=== PATIENT | male | born 1935 | race Caucasian/White ===

== ENCOUNTER 2024-10-30 09:53 | Day surgery (SDC) | payer OTHER, SELFPAY ==
[2024-10-30] VITALS (14 sets, daily range): BP systolic 90–172; BP diastolic 43–133
[2024-10-30 10:44] LABS: Glucose - Point of Care 127 mg/dl (70-99)
--- NOTE | 2024-10-30 11:26 | CONSULT.STRU ---
Consultation
-
Date/Time Consultation Requested: 10/30/2024
Date/Time Consultation Performed: 10/30/2024
Requesting Provider: Gloria Lopez MD
Performing Provider: ABDIRAHMAN Stafford
Reason for Consultation: /TAVR
Patient History
Physicians
Family Physician: Roxanne Simeon MD
Outpatient Shim Plug Cutter: Tate Nair MD
Primary Shim Plug Cutter: Tate Nair MD
History of Present Illness
Mr. Kurtz is a very pleasant 89 yom that has a past medical history significant for aortic stenosis, AFIB, PPM, AVR, HLD, HTN, mitral stenosis, and T2DM. His echocardiogam from 08/16/2024 is notable for an EF 50%, AV P/M 59/39, TORRIE 0.44, DI
0.23, MS, MAC. From a symptomatology standpoint, patient describes recent hospitalization for HFpEF, LE edema, HARRIS, and fatigue. Discussed the pathophysiology and treatment options of aortic stenosis including SAVR and TAVR, Explained the evaluation
process comprising of lab work, CT scan, CT surgical consult, dental clearance, and a heart team discussion. TAVR booklet, contact information, prescriptions, and appointments given to patient. Allowed for and answered questions at bedside.
Past Medical History
Past Medical History: Atrial Fib, CHF (HFpef), HTN, NIDDM, Valvular Disease (bioprosthetic aortic stenosis, MS) and Other (hyperlipidemia, CKD)
Past Surgical History
Past Surgical History: Valve (Aortic Valve (#25 bioprosthetic)) and Other (PPM)
Dental History
[facility] dentistry--Patient states he is UTD-- Will send dental clearance form
Family History
Mother: N/A
Father: N/A
Social History
Alcohol: Occasional
Drug: None
Tobacco: Former Smoker
Personal: Single
Living: With Family
Employment: Retired
Allergies
Allergy/AdvReac Type Severity Reaction Status Date / Time
No Known Allergies Allergy Verified 10/30/24 10:48
Home Medications
�Medication �Instructions �Recorded �Confirmed �Type
triamterene 37.5 1 cap PO DAILY 02/05/08 10/30/24 History
mg-hydrochlorothiazide 25 mg
capsule
vitamins A and D3 in cod liver oil 1 cap PO DAILY 02/05/08 10/30/24 History
1,250 unit-135 unit capsule
apixaban 5 mg tablet (Eliquis) 5 mg PO BID 10/30/24 10/30/24 History
atorvastatin 20 mg tablet 20 mg PO DAILY 10/30/24 10/30/24 History
carvedilol 6.25 mg tablet 6.25 mg PO BID 10/30/24 10/30/24 History
empagliflozin 25 mg tablet 12.5 mg PO DAILY 10/30/24 10/30/24 History
(Jardiance)
ferrous sulfate 324 mg (65 mg 324 mg PO BID 10/30/24 10/30/24 History
iron) tablet,delayed release
glimepiride 4 mg tablet 4 mg PO DAILY 10/30/24 10/30/24 History
metformin 1,000 mg tablet 1,000 mg PO BID 10/30/24 10/30/24 History
spironolactone 25 mg tablet 25 mg PO DAILY 10/30/24 10/30/24 History
terazosin 5 mg capsule 5 mg PO HS 10/30/24 10/30/24 History
torsemide 20 mg tablet 20 mg PO DAILY 10/30/24 10/30/24 History
valsartan 40 mg tablet 40 mg PO BID 10/30/24 10/30/24 History
STS%
STS %: 9.28
Review of Systems
-
History Source: Patient and Family
General: Reports Fatigue
HEENT: Reports No Symptoms
Respiratory: Reports SOB and HARRIS
Cardiac: Reports No Symptoms
Abdomen/GI: Reports No Symptoms
: Reports No Symptoms
Musculoskeletal: Reports No Symptoms
Skin: Reports No Symptoms
Neurological: Reports No Symptoms
Vascular: Reports No Symptoms
Physical Exam
Vital Signs
Pulse 67 10/30/24 10:26
Resp Rate 19 10/30/24 10:26
Blood pressure 96/68 10/30/24 10:26
Blood pressure extremity used: Left upper arm 10/30/24 10:26
Position: Sitting 10/30/24 10:26
SaO2 98 10/30/24 10:26
Oxygen Mode of Delivery Room air 10/30/24 10:26
Can the patient verbally communicate their pain? Yes 10/30/24 10:26
Diagnostic Studies
ECHOCARDIOGRAM 08/16/2024
SUMMARY
1. Preserved left ventricular systolic function.
2. Estimated left ventricular ejection fraction is 50 % by visual interpretation.
3. Entire septum is abnormal.
4. Indeterminate LV diastolic function.
5. Normal right ventricular size and systolic function.
6. Severely dilated left atrium by volume index 51.9 mL/m2.
7. Mildly dilated right atrium by area 21.6 cm2.
8. Status post aortic valve replacement. Aortic prosthesis appears to be functioning abnormally. The prosthetic aortic valve appears obstructed. Aortic valve gradients are elevated for this prosthesis type.
9. AoV velocity of 3.85 m/s; Peak aortic valve gradient = 59.2 mmHg; Mean gradient = 38.5 mmHg; AoV Area by continuity equation = 0.44 cm2; AoV Dimensionless Index = 0.23.
10. Moderate mitral valve stenosis with mean gradient of 7.4 mmHg.
11. Moderate mitral annular calcification.
12. Moderate tricuspid regurgitation.
13. Moderate mitral valve regurgitation is seen.
14. Inferior vena cava normal in size (>2.1 cm) + less than 50% variably consistent with elevated right atrial pressures (15 mmHg).
15. Right atrial pressure of (15 mmHg), the estimated right ventricular systolic pressure is severely elevated at (78.8 mmHg).
16. Since 01/2024, there has been no significant change
Procedure Type:�Isolated AVR
Perioperative Outcome Estimate %
Operative Mortality 9.28%
Morbidity & Mortality 25.5%
Stroke 5.64%
Renal Failure 8.26%
Reoperation 4.53%
Prolonged Ventilation 13.8%
Deep Sternal Wound Infection 0.109%
Long Hospital Stay (>14 days) 18.2%
Short Hospital Stay (<6 days)* 9.36%
Exam
General: Well Developed, Well Nourished and No Apparent Distress
HEENT: Normocephalic
Neck: Trachea Midline
Respiratory: Clear (anteriorly)
Cardiac: Irregular Rhythm and Murmur (III/ OLIVIA)
GI: Soft and Non Tender
Rectal: Deferred by Provider
Skin: Warm
Neuro: Awake and Alert
Extremities: Lower Level Edema
Psych: Calm
Assessment / Plan
-
Aortic stenosis of bioprosthetic valve
Continue TAVR evaluation
Trend creatinine after each contrast administration
CT TAVR (staged d/t CKD)
Will hold Eliquis x 48 before TAVR. Add aspirin while Eliquis held. D/C aspirin once Eliquis resumed
Dental clearance
CT surgical consult
Frailty testing and [id number] at consult.
Heart team discussion
Data Reviewed
-
Digital Media Director: Report Reviewed by me and Discussed with Physician
Echo: Report Reviewed by me and Discussed with Physician
Labs: Labs Reviewed by me
Old Records: Reviewed
Total Time Spent with Patient (in minutes): 45
--- NOTE | 2024-10-30 14:22 | ITS.CL.CATH ---
[facility] - Catheterization
Cardiac Catheterization
Procedure Report:
LEFT HEART CATHETERIZATION
Date of Procedure: October 30, 2024
Procedures performed:
1: Coronary angiography
2: Left ventricular hemodynamic assessment
Primary Care Physician: Dr. Eileen Noe
Primary Cabinet Abrasive Sandblaster: Dr. Tate Nair
INDICATION: The patient is an 89-year-old man with a past medical history significant for bioprosthetic aortic valve replacement in 2007, permanent atrial fibrillation, status post pacemaker placement, hypertension, and calcific mitral inflow
disease who presents with increasing exertional dyspnea. He was recently admitted from the office on October 09 for IV diuresis. [facility] was held for today's procedure.
ACCESS: The patient was prepped and draped in usual sterile fashion. A 6 British sheath was placed in the right radial artery using the Seldinger over the wire technique. Accessing the coronary arteries from a radial approach was extremely
difficult due to tortuosity of the innominate artery. Would use femoral approach in the future.
HEMODYNAMIC FINDINGS (mmHg):
LV(s/d,EDP): 156/23, 28
Ao(s/d,m): 97/59, 76
Mean gradient on pullback: 41 mmHg
ANGIOGRAPHIC FINDINGS:
Single-plane Left Ventriculography in [place] Projection: Not done. Echo performed on August 16, 2024 showed a mean gradient of 39 across the aortic valve. The ejection fraction was 50% with ventricular pacing. The mitral inflow gradient was 7.4 mmHg.
There was moderate TR and moderate MR.
Coronary Angiography:
Dominance: Left
Left Main: Normal. Note it was very difficult to cannulate this from a radial approach. Ultimately a 6 British JL 4 was used to selectively engage the left main into the proximal LAD.
Left Anterior Descending: The left anterior descending artery is a medium caliber vessel that gives rise to 1 large bifurcating first diagonal branch. The proximal LAD has a tubular 40% stenosis with prominent calcification in the proximal portion
which makes accurate angiographic assessment difficult. There does not appear to be clearly obstructive disease in the LAD and the LAD has normal flow. The apical LAD wraps around the apex to feed a significant portion of the inferior wall. The
major diagonal branch is also heavily calcified in the ostium and proximal bifurcation. There is an 80 to 90% calcified ostial stenosis with moderate diffuse disease in the medial branch and a focal smooth 70 to 80% stenosis in the more lateral
branch. Despite this these vessels have normal flow. The diagonal branch vessel disease has clearly progressed when compared to prior angiography in 2018.
Left Circumflex: The left circumflex artery is a moderate caliber dominant vessel that gives rise to 1 very large first obtuse marginal branch that has mild ostial stenosis. The distal vessel trifurcates into 2 left-sided PLV branches and a
left-sided posterior descending artery. These vessels are widely patent with only mild luminal irregularities and normal flow.
Right Coronary: Small nondominant vessel that was widely patent on a single nonselective injection.
Fluoroscopy Time (min): 13.1
Radiation Dose (mGy): 526
DAP (Gy.cm2): 38
Closure device: None. A TR band was applied for hemostasis at the right wrist.
Complications: None.
ASSESSMENT:
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 This is new when compared to prior angiography in 2008.
2: Severe aortic valvular stenosis.
CONCLUSIONS and RECOMMENDATIONS:
1: Proceed with TAVR evaluation. Would favor medical therapy for branch vessel coronary artery disease in this 89-year-old man who has no typical angina.
2: Close clinical follow-up as scheduled.
Gloria Lopez M.D.
Copy to: Dr. Eileen Noe
== END 2024-10-30 16:47 | disposition home or self-care (01) ==
LOC: CATH 09:53
PROVIDERS: ATTENDING PHYSICIAN Internal Medicine Interventional Cardiology; FAMILY PHYSICIAN Family Medicine; OTHER PHYSICIAN Internal Medicine Cardiovascular Disease
DX: I25.10 Atherosclerotic heart disease of native coronary artery without angina pectoris (principal); I35.2 Nonrheumatic aortic (valve) stenosis with insufficiency; I08.3 Combined rheumatic disorders of mitral, aortic and tricuspid valves; I48.21 Permanent atrial fibrillation; I13.0 Hypertensive heart and chronic kidney disease with heart failure and stage 1 through stage 4 chronic kidney disease, or unspecified chronic kidney disease; E11.22 Type 2 diabetes mellitus with diabetic chronic kidney disease; N18.2 Chronic kidney disease, stage 2 (mild); I50.32 Chronic diastolic (congestive) heart failure; E78.5 Hyperlipidemia, unspecified; Z95.0 Presence of cardiac pacemaker; Z87.891 Personal history of nicotine dependence; Z95.3 Presence of xenogenic heart valve; Z79.01 Long term (current) use of anticoagulants; Z79.84 Long term (current) use of oral hypoglycemic drugs
CPT/HCPCS: C1894; C1769; 82962; 93458; Q9967